=== PATIENT | male | born 1970 | race American Indian/Alaskan Native ===

== ENCOUNTER 2021-05-14 12:48 | Emergency (ER) | payer BC ==
[2021-05-14] MEDS ORDERED: cloNIDine 0.1 MG TAB PO ONE (13:50)
--- NOTE | 2021-05-14 13:55 | Emergency Department Report ---
ED General Adult HPI - General Chief complaint: Chest Pain Stated complaint: LT NECK/SHOULDER PAIN Time Seen by Provider: 05/14/21 13:34 Source: patient Mode of arrival: Ambulatory Limitations: No Limitations - History of Present Illness Initial comments: Patient is 50 years old male with history of hypertension, noncompliant with his medication. Patient presented to the ER stating that his blood pressure is really high and is complaining of left shoulder pain for the last 4 days. Patient denies any chest pain. Patient stated that she went to a fire station and they checked his blood pressure was really high and asked him to come to the emergency room. Patient denied any headache, neck pain, weakness numbness or tingling sensation. No bowel bladder incontinence. Patient also denied any shortness of breath. Patient found to have a blood pressure of 200/136. Severity scale (0 -10): 5 - Related Data Allergies Allergy/AdvReac Type Severity Reaction Status Date / Time No Known Allergies Allergy Verified 05/14/21 14:06 ED Review of Systems ROS: Stated complaint: LT NECK/SHOULDER PAIN Other details as noted in HPI Comment: All other systems reviewed and negative Constitutional: denies: chills, fever Respiratory: denies: cough, shortness of breath, SOB with exertion, SOB at rest Cardiovascular: chest pain. denies: palpitations, dyspnea on exertion Gastrointestinal: denies: abdominal pain, nausea, vomiting, diarrhea, constipation, hematemesis, melena, hematochezia Musculoskeletal: denies: back pain Neurological: denies: headache, weakness ED Physical Exam - General Limitations: No Limitations General appearance: alert, in no apparent distress - Head Head exam: Present: atraumatic, normocephalic, normal inspection - Eye Eye exam: Present: normal appearance, PERRL - ENT ENT exam: Present: normal exam, normal orophraynx, mucous membranes moist - Neck Neck exam: Present: normal inspection, full ROM. Absent: tenderness, meningismus - Respiratory Respiratory exam: Present: normal lung sounds bilaterally - Cardiovascular Cardiovascular Exam: Present: regular rate, normal rhythm, normal heart sounds - GI/Abdominal GI/Abdominal exam: Present: soft, normal bowel sounds. Absent: distended, tenderness, guarding, rebound, rigid, organomegaly, mass, bruit, pulsatile mass, hernia - Extremities Exam Extremities exam: Present: normal inspection, full ROM, normal capillary refill. Absent: tenderness, pedal edema, joint swelling, calf tenderness - Back Exam Back exam: Present: normal inspection, full ROM. Absent: CVA tenderness (R), CVA tenderness (L) - Neurological Exam Neurological exam: Present: alert, oriented X3, CN II-XII intact, normal gait, reflexes normal. Absent: motor sensory deficit - Psychiatric Psychiatric exam: Present: normal mood - Skin Skin exam: Present: warm, intact, normal color ED Course Vital Signs 05/14/21 05/14/21 05/14/21 12:56 12:58 14:33 Temperature 98.4 F Pulse Rate 70 82 58 L Respiratory 18 20 14 Rate Blood Pressure 200/118 [Right] O2 Sat by Pulse 99 99 Oximetry 05/14/21 05/14/21 05/14/21 14:39 14:41 14:43 Temperature 98.0 F Pulse Rate 62 63 Respiratory 19 Rate Blood Pressure 195/111 [Right] O2 Sat by Pulse 100 100 Oximetry ED Medical Decision Making - Lab Data Result diagrams: 05/14/21 14:29 05/14/21 14:29 - EKG Data -: EKG Interpreted by Hi EKG shows normal: sinus rhythm Rate: normal - EKG Data Interpretation: no acute changes - Radiology Data Radiology results: report reviewed - Medical Decision Making Patient is 50 years old male with history of hypertension, noncompliant with his medication. Patient presented to the ER stating that his blood pressure is really high and is complaining of left shoulder pain for the last 4 days. Patient denies any chest pain. Patient stated that she went to a fire station and they checked his blood pressure was really high and asked him to come to the emergency room. Patient denied any headache, neck pain, weakness numbness or tingling sensation. No bowel bladder incontinence. Patient also denied any shortness of breath. Patient found to have a blood pressure of 200/136. Patient blood pressure improved significantly with clonidine 0.2 mg. Patient current blood pressure is 145/92. Labs reviewed and is unremarkable including a negative troponin. Chest x-ray is unremarkable. Patient stated that he is feeling much better and his left arm and neck pain is completely gone. I started patient on Norvasc and hydrochlorothiazide and advised patient to follow-up with his primary care physician in the next 2 to 3 days and to return to the ER if he develop any new symptoms. Critical care attestation.: If time is entered above; I have spent that time in minutes in the direct care of this critically ill patient, excluding procedure time. ED Disposition Clinical Impression: Malignant hypertension Disposition: 01 HOME / SELF CARE / HOMELESS Is pt being admited?: No Condition: Stable Instructions: Hypertension (ED), Hypertension, Adult, [id number] Referrals: GEOFF CAMPO MD [Primary Care Provider] - 3-5 Days
--- NOTE | 2021-05-14 14:19 | XRay Report ---
CHEST 1 VIEW INDICATION: Chest Pain. COMPARISON: None. FINDINGS: Support devices: None. Heart: Normal. Lungs/Pleura: No acute pulmonary or pleural findings. IMPRESSION: 1. No acute findings. Signer Name: Rashawn Marcelino MD Signed: 05/14/2021 2:15 PM Workstation Name: [id number]
[2021-05-14 15:33] LABS: Basophils % (Auto) 0.8 % (0.0-1.8); Eosinophils # (Auto) 0.1 K/mm3 (0.0-0.4); Hematocrit 46.3 % (35.5-45.6); Hemoglobin 15.7 gm/dl (11.8-15.2); Lymphocytes # (Auto) 1.7 K/mm3 (1.2-5.4); Lymphocytes % (Auto) 31.9 % (13.4-35.0); Mean Corpuscular HGB Conc 34 % (32-34); Mean Corpuscular Volume 89 fl (84-94); Monocytes # (Auto) 0.3 K/mm3 (0.0-0.8); Monocytes % (Auto) 6.3 % (0.0-7.3); Platelet Count 174 K/mm3 (140-440); Red Blood Count 5.21 M/mm3 (3.65-5.03)
[2021-05-14 15:43] LABS: INR 0.92 (0.87-1.13)
[2021-05-14 15:44] LABS: Partial Thromboplastin Time 33.7 Sec. (24.2-36.6)
[2021-05-14 16:54] LABS: BUN/Creatinine Ratio 13; Blood Urea Nitrogen 12 mg/dL (9-20); Calcium 9.4 mg/dL (8.4-10.2); Hemolysis Index 28
[2021-05-14 17:30] VITALS: BP 142/94
--- NOTE | 2021-05-15 09:59 | Electrocardiograph Report ---
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
== END 2021-05-14 17:31 | disposition home or self-care (01) ==
LOC: ED 12:48
DX: I10 Essential (primary) hypertension (principal)
CPT/HCPCS: 36415; 71045; 80048; 83690; 84484; 85025; 85610; 85730; 93005; 93010; 99284